=== PATIENT | male | born 1995 | race Two or more races ===

== ENCOUNTER 2025-02-07 19:19 | Emergency (ER) | payer MEDICAID ==
[~2025-02-07] VITALS: Ht 165.1 cm; Wt 63.5 kg
[2025-02-07 19:39] VITALS: TEMP 98.6
[2025-02-07 19:49] VITALS: BP 137/80; O2SAT 99
== END 2025-02-07 19:55 | disposition home or self-care (01) ==
LOC: ER 19:24
DX: R25.3 Fasciculation (principal); T50.905A Adverse effect of unspecified drugs, medicaments and biological substances, initial encounter; Y92.89 Other specified places as the place of occurrence of the external cause